=== PATIENT | female | born 1960 | race Asian ===

== ENCOUNTER 2016-07-28 20:27 | Emergency (ER) | payer SELFPAY ==
[2016-07-28 23:06] VITALS: BP 138/72
== END 2016-07-28 23:06 | disposition home or self-care (01) ==
LOC: ED 20:27
DX: S09.90XA Unspecified injury of head, initial encounter (principal); W17.89XA Other fall from one level to another, initial encounter; Y93.51 Activity, roller skating (inline) and skateboarding; Y99.8 Other external cause status; Y92.89 Other specified places as the place of occurrence of the external cause

== ENCOUNTER 2016-09-20 19:48 | Emergency (ER) | payer OTHER ==
[2016-09-20 21:27] VITALS: BP 120/75
== END 2016-09-20 21:27 | disposition home or self-care (01) ==
LOC: ED 19:48
DX: S30.811A Abrasion of abdominal wall, initial encounter (principal); W55.03XA Scratched by cat, initial encounter; Y93.E9 Activity, other interior property and clothing maintenance; Y92.89 Other specified places as the place of occurrence of the external cause; Y99.8 Other external cause status
CPT/HCPCS: 90715

== ENCOUNTER 2016-12-10 18:06 | Emergency (ER) | payer OTHER ==
[~2016-12-10] VITALS: Ht 157.5 cm; Wt 58.7 kg
[2016-12-10 18:54] LABS: BASOPHIL % 0.4 % (0-2); PLATELET COUNT 246 x10^3mcL (130-400); RED CELL DISTRIBUTION WIDTH 12.4 % (11.5-14.5)
[2016-12-10 19:07] LABS: CALCIUM 8.9 mg/dL (8.5-10.1); CARBON DIOXIDE 29.4 mmol/L (21-32); CHLORIDE SERUM 105 mmol/L (98-107); CREATININE SERUM 0.7 mg/dL (0.6-1.0); GFR1 > 60 mL/min; GLUCOSE SERUM 103 mg/dL (74-106); POTASSIUM SERUM 4.3 mmol/L (3.5-5.1); SODIUM SERUM 138 mmol/L (136-145)
[2016-12-10 19:11] LABS: ALBUMIN 3.8 g/dL (3.4-5.0); ALKALINE PHOSPHATASE 64 U/L (46-116); ALT/SGPT 32 U/L (14-59); AMYLASE 66 U/L (25-115); AST/SGOT 19 U/L (15-37); BILIRUBIN TOTAL 0.3 mg/dL (0.20-1.00); LIPASE 165 IU/L (73-393); MAGNESIUM 2.3 mg/dL (1.8-2.4); TOTAL PROTEIN, SERUM 7.9 g/dL (6.4-8.2)
[2016-12-10 20:51] VITALS: BP 118/64
== END 2016-12-10 20:51 | disposition home or self-care (01) ==
LOC: ED 18:06
PROVIDERS: Emergency Medicine
DX: R10.13 Epigastric pain (principal); R11.10 Vomiting, unspecified
CPT/HCPCS: 83880; J1885; J2270; J2405; J3490; J7030; Q0092